=== PATIENT | male | born 1995 | race Two or more races ===

== ENCOUNTER 2018-10-05 15:22 | Emergency (ER) | payer OTHER ==
[2018-10-05 15:31] VITALS: BP 149/108; PULSE 103; TEMP 98.3; BMI 35.5
[2018-10-05] MEDS ORDERED: FLUORESCEIN NA 1 EA STRIP OS ONE (15:37)
[2018-10-05] MEDS ORDERED: TETRACAINE 0.5% HCL 0.6ML DROPPER.BOTTLE OS ONE (15:37)
[2018-10-05] MEDS ORDERED: TETRACAINE 0.5% OPHTH SOLN 2 ML BOTTLE ONE (15:39)
[2018-10-05] MEDS ORDERED: FLUORESCEIN NA 1 EA STRIP ONE (15:39)
--- NOTE | 2018-10-05 16:39 | PDOC ---
Documentation entered by Carter Benson SCRIBE, acting as scribe for Omid Robb MD. Omid Robb MD: This documentation has been prepared by the [place] [employer], SCRIBE, under my direction and personally reviewed by me in its entirety. I confirm that the documentation accurately reflects all work, treatment, procedures, and medical decision making performed by me. History of Present Illness - General Chief Complaint: Eye Problem Stated Complaint: LEFT EYE REDNESS Time Seen by Provider: 10/05/18 15:23 History Source: Patient Exam Limitations: No Limitations - History of Present Illness Initial Comments: 10/05/18 15:52 The patient is a 23 year old male with no significant past medical history who presents to the ED with pink colored eye for 2 days. Patient states his left eye became pink two days ago. He states his left eye is itchy, watery, and painful with movement. He also reports a subjective fever, sore throat, and generalized weakness earlier today associated with present symptoms. Patient states he took clean and clear eye drops with no relief of present symptoms. Denies visual changes. Denies any other symptoms. Social hx: The patient works at a [employer]. Past History - Past Medical History Allergies/Adverse Reactions: Allergies Allergy/AdvReac Type Severity Reaction Status Date / Time No Known Allergies Allergy Verified 10/05/18 15:24 Home Medications: Ambulatory Orders Sulfacetamide Sodium 10% [Bleph-10 Ophthalmic Solution -] 1 drop OS Q2H #1 bottle 10/05/18 - Immunization History Immunization Up to Date: Yes - Suicide/Smoking/Psychosocial Hx Smoking History: Never smoked Hx Alcohol Use: No Drug/Substance Use Hx: No Substance Use Type: None Review of Systems - Review of Systems Able to Perform ROS?: Yes Comments:: 10/05/18 15:52 CONSTITUTIONAL: + subjective fever + generalized weakness. EYES: + pink colored eye Absent: visual changes ENT: + sore throat Absent: ear pain CARDIOVASCULAR: Absent: chest pain, no palpitations RESPIRATORY: Absent: cough, no SOB GI: Absent: abdominal pain, no nausea, no vomiting, no constipation, no diarrhea GENITOURINARY: Absent: dysuria, no frequency, no hematuria MUSKULOSKELETAL: Absent: back pain, no arthralgia, no myalgia SKIN: Absent: rash NEURO: Absent: headache All Other Systems: Reviewed and Negative *Physical Exam - Vital Signs Last Vital Signs Temp Pulse Resp BP Pulse Ox 98.3 F 103 H 20 149/108 H 99 10/05/18 15:23 10/05/18 15:23 10/05/18 15:23 10/05/18 15:23 10/05/18 15:23 - Physical Exam Comments: 10/05/18 15:53 GENERAL: Well-appearing, well-nourished. No apparent distress. HEENT: + Pupil is 4 mm. PERRLA. Conjunctival injection moderate to severe but no ciliary flush. The anterior chamber is clear. The cornea is clear and does not sting with fluorescence. There is no foreign body visible. Extraoccular movements are full and visual feilds are intact. Visual field is 20/20. Normocephalic, atraumatic. CARDIOVASCULAR: Normal S1, S2. Regular rate and rhythm. PULMONARY: Clear to auscultation bilaterally. ABDOMEN: Soft, non-distended, non-tender. EXTREMITIES: Normal ROM in all four extremities. No gross deformities. SKIN: Warm, dry. No rash NEUROLOGICAL: No focal neurological deficits. ED Treatment Course - Medications Given in the ED: ED Medications Discontinued Medications Generic Name Dose Route Start Last Admin Trade Name Brian PRN Reason Stop Dose Admin Fluorescein Sodium 1 ea 10/05/18 15:37 10/05/18 15:39 Fluorets - OS 10/05/18 15:38 1 ea ONCE ONE Administration Tetracaine HCl 1 drop 10/05/18 15:37 10/05/18 15:40 Tetravisc 0.5% Eye Drops - OS 10/05/18 15:38 1 drop ONCE ONE Administration Medical Decision Making - Medical Decision Making 10/05/18 16:57 Examination of the eye reveals signs of viral conjunctivitis. There is no ciliary flush, the cornea and anterior chamber clear, no foreign bodies visualized. The patient has signs of a URI as well. Visual acuity is 20/20 Symptomatic treatment and follow-up with cut filer if no improvement. Fully ambulatory in no pain or other distress at discharge 10/05/18 16:59 His blood pressure has been elevated numerous times in the past, and he is strongly encouraged to consult his primary physician and seek better blood pressure control to avoid subsequent medical problems. He seems to understand and agree. *DC/Admit/Observation/Transfer Diagnosis at time of Disposition: Conjunctivitis Qualifiers: Conjunctivitis type: acute Acute conjunctivitis type: unspecified Laterality: left Qualified Code(s): H10.32 - Unspecified acute conjunctivitis, left eye - Discharge Dispostion Disposition: HOME Condition at time of disposition: Stable Decision to Admit order: No - Prescriptions Prescriptions: Sulfacetamide Sodium 10% [Bleph-10 Ophthalmic Solution -] 1 drop OS Q2H #1 bottle - Referrals Referrals: Merlin Whittaker MD [Staff Physician] - 3 days - Patient Instructions Printed Discharge Instructions: DI for Conjunctivitis Additional Instructions: Warm compresses, antibiotic drops as directed. Tylenol or Motrin See eye doctor if no improvement 3-5 days as directed. - Post Discharge Activity Forms/Work/School Notes: Back to Work
== END 2018-10-05 16:30 | disposition home or self-care (01) ==
LOC: FER 15:22
DX: H10.32 Unspecified acute conjunctivitis, left eye (principal)
CPT/HCPCS: 99281-25

== ENCOUNTER 2018-10-19 20:39 | Emergency (ER) | payer OTHER | END 2018-10-19 21:17 | disposition home or self-care (01) | LOC: FER 20:39 ==

== ENCOUNTER 2019-05-30 21:46 | Emergency (ER) | payer OTHER ==
[2019-05-30 21:56] VITALS: BP 156/102; PULSE 128; TEMP 100.9; BMI 36.9
[2019-05-30] MEDS ORDERED: IBUPROFEN 400 MG TABLET (FP) PO ONE ×2 (21:56→21:59)
[2019-05-30] MEDS ORDERED: OSELTAMIVIR PHOSPHATE 75 MG CAPSULE PO ONE (21:56)
[2019-05-30] MEDS ORDERED: OSELTAMIVIR PHOSPHATE 75 MG CAPSULE ONE (21:59)
[2019-05-30] MEDS ORDERED: ONDANSETRON *ODT* 4 MG TABLET SL ONE (22:00)
[2019-05-30] MEDS ORDERED: ONDANSETRON *ODT* 4 MG TABLET ONE (22:01)
--- NOTE | 2019-05-30 22:04 | PDOC ---
History of Present Illness - General Chief Complaint: Respiratory Stated Complaint: FLU LIKE ILLNESS Time Seen by Provider: 05/30/19 21:55 History Source: Patient Exam Limitations: No Limitations - History of Present Illness Initial Comments: 05/30/19 22:04 This is a 23-year-old male who comes in with his significant other complaining of acute onset x1 day headache, body aches, fever, cough and a flulike symptoms. Patient's significant other is currently getting over the flu. Allergies: as per nursing notes Past Medical History: none Social history: Lives with family. No smoking. No alcohol. No illicit drugs. Surgical history: None General: No fevers or chills, no weakness, no weight loss HEENT: No change in vision. No sore throat,. No ear pain CardioVascular: no chest discomfort. No shortness of breath Respiratory:No cough, or wheezing. Gastrointestinal: no nausea, vomiting, diarrhea or constipation, No rectal bleeding Genitourinary: No dysuria, hematuria, or frequency Musculoskeletal: No joint or muscle pain or swelling Neurologic: No headache, vertigo, dizziness or loss of consciousness Psychiatric: nor depression Skin: No rashes or easy bruising Endocrine: no increased thirst or abnormal weight change Allergic: no skin or latex allergy All other systems reviewed and normal Exam: General: Well-nourished well-developed individual, no acute distress HEENT: Throat: Normal, tonsils normal, no erythema or exudate Neck: Supple, no meningeal signs, no lymphadenopathy Eyes::Pupils equal reactive and round, extraocular motion intact Chest: Nontender to palpation Cardiac: S1-S2 normal, regular rate and rhythm, no murmurs rubs or gallops Respiratory: Lungs clear to auscultation bilateral Abdomen: Soft, nondistended, normal bowel sounds, there is no tenderness on palpation diffusely Extremities: Warm, dry, no cyanosis, clubbing, or edema Skin: No rashes Neuro: Alert and oriented x3, CN II - XII intact, nonfocal exam with normal strength, normal sensation, normal reflexes, normal gait, Psych: Normal mood and affect Assessment and plan: This is a 23-year-old male with flulike illness and a significant other who is getting over the flu. Patient started on Tamiflu, given Motrin for the fever and some Zofran for the nausea. Patient otherwise has had no vomiting and appears well-hydrated. Patient discharged we will follow-up with his primary care doctor. Patient given prescriptions for Tamiflu and Zofran. Past History - Past Medical History Allergies/Adverse Reactions: Allergies Allergy/AdvReac Type Severity Reaction Status Date / Time No Known Allergies Allergy Verified 05/30/19 21:48 Home Medications: Ambulatory Orders Ondansetron [Zofran *Odt*] 8 mg SL TID #12 od.tablet 05/30/19 Oseltamivir Phosphate [Tamiflu] 75 mg PO BID #10 capsule 05/30/19 COPD: No Other medical history: HEADACHES - Immunization History Immunization Up to Date: Yes - Psycho Social/Smoking Cessation Hx Smoking History: Never smoked Have you smoked in the past 12 months: No Hx Alcohol Use: Yes (OCCASIONAL) Drug/Substance Use Hx: No Substance Use Type: None *Physical Exam - Vital Signs Last Vital Signs Temp Pulse Resp BP Pulse Ox 100.9 F H 128 H 18 156/102 H 97 05/30/19 21:47 05/30/19 21:47 05/30/19 21:47 05/30/19 21:47 05/30/19 21:47 Discharge - Discharge Information Problems reviewed: Yes Clinical Impression/Diagnosis: Influenza-like illness Condition: Good Disposition: HOME - Admission No - Follow up/Referral - Patient Discharge Instructions Additional Instructions: Take Tamiflu 1 tablet twice a day for 5 days, Tylenol or Motrin as needed for body aches, headache or fever, Follow-up with your primary care doctor regarding your high blood pressure. Take Zofran 1 tablet as often as 3 times a day for nausea or vomiting. Return to the emergency department immediately with ANY new, persistent or worsening symptoms. Continue any medications as previously prescribed by your physician. You should follow up with your primary doctor as soon as possible regarding today's emergency department visit. . Please make sure your doctor reviews the results of your emergency evaluation. Thank you for coming to the Emergency Department today for your care. It was a pleasure to see you today. Please note that your evaluation is INCOMPLETE until you follow-up with your doctor. - Post Discharge Activity
== END 2019-05-30 22:22 | disposition home or self-care (01) ==
LOC: FER 21:46
DX: J11.1 Influenza due to unidentified influenza virus with other respiratory manifestations (principal)
CPT/HCPCS: 99281-25; Q0162

== ENCOUNTER 2019-06-05 21:25 | Emergency (ER) | payer OTHER ==
[2019-06-05 21:41] VITALS: BP 151/102; PULSE 100; TEMP 100.1; BMI 36.9
[2019-06-05] MEDS ORDERED: MAG HYDROX/AL HYDROX/SIMETH 30 ML UNIT-DOSE CUP PO ONE (22:15)
[2019-06-05] MEDS ORDERED: MAG HYDROX/AL HYDROX/SIMETH 30 ML UNIT-DOSE CUP ONE (22:17)
--- NOTE | 2019-06-06 04:51 | PDOC ---
Documentation entered by Lay Tai SCRIBE, acting as scribe for Mckenzie Bal MD. Mckenzie Bal MD: This documentation has been prepared by the [place], SCRIBE, under my direction and personally reviewed by me in its entirety. I confirm that the documentation accurately reflects all work, treatment, procedures, and medical decision making performed by me. History of Present Illness - General Chief Complaint: Pain Stated Complaint: GERD Time Seen by Provider: 06/05/19 21:27 History Source: Patient Exam Limitations: No Limitations - History of Present Illness Initial Comments: 06/05/19 21:45 The patient is a 23 year old male with a significant PMH of the flu (this week) and chronic headaches who presents to the ED for a 1 day of substernal chest pain, which comes for a few seconds every 10 minutes, especially after eating. The patient reports that the chest pain is nonradiating and is worsened by eating/drinking and alleviated by lying down. The patient reports that he was diagnosed with the Flu on Saturday (05/30/2019) and was given Tamiflu, he also reports going to a neurologist on Saturday (06/03/2019) and was put on fioricet and amitriptyline for his headaches. He also reports that yesterday he saw his general doctor who diagnosed him with a throat infection and prescribed him azithromycin (Z-Lincoln) and prednisone. His doctor also started him on pantoprazole. The patient also endorses 2 days of abdominal pain and constipation, noting that he has not had a bowel movement in 2 days and 1 episode of vomiting today. Patient also endorses being positive for strep a pharyngitis few months ago and having a subjective fever today. The patient denies dizziness. Denies diarrhea. Denies dysuria, frequency, urgency and hematuria. Allergies: NKA Social history: No reported hx of tobacco use, alcohol use or illicit drug use. PCP: Vikram , Past History - Past Medical History Allergies/Adverse Reactions: Allergies Allergy/AdvReac Type Severity Reaction Status Date / Time No Known Allergies Allergy Verified 05/30/19 21:48 Home Medications: Ambulatory Orders Ondansetron [Zofran *Odt*] 8 mg SL TID #12 od.tablet 05/30/19 Oseltamivir Phosphate [Tamiflu] 75 mg PO BID #10 capsule 05/30/19 Amitriptyline HCl [Elavil -] 10 mg PO DAILY 06/05/19 Azithromycin [Zithromax] 500 mg PO DAILY 06/05/19 Butalb/Acetaminophen/Caffeine [Kcbyjn-Ziryuvsy-Azpr 50-325-40] 1 each PO PRN PRN 06/05/19 Cetirizine HCl 10 mg PO DAILY 06/05/19 Naproxen 500 mg PO PRN PRN 06/05/19 predniSONE [Deltasone -] 10 mg PO DAILY 06/05/19 COPD: No - Immunization History Immunization Up to Date: Yes - Psycho Social/Smoking Cessation Hx Smoking History: Never smoked Have you smoked in the past 12 months: No Hx Alcohol Use: Yes (OCCASIONAL) Drug/Substance Use Hx: No Substance Use Type: None Review of Systems - Review of Systems Able to Perform ROS?: Yes Comments:: 06/05/19 22:17 GENERAL/CONSTITUTIONAL: (+)fever. No weakness. HEAD, EYES, EARS, NOSE AND THROAT: (+) Soar throat. No change in vision. No ear pain or discharge. CARDIOVASCULAR: (+) Substernal chest pain (+) Shortness of breath. RESPIRATORY: No cough, wheezing, or hemoptysis. GASTROINTESTINAL: (+) nausea (+) vomiting (+) Constipation. No diarrhea. GENITOURINARY: No dysuria, frequency, or change in urination. MUSCULOSKELETAL: No joint or muscle swelling or pain. No neck or back pain. SKIN: No rash NEUROLOGIC: (+) Headache. No vertigo, loss of consciousness, or change in strength/sensation. ENDOCRINE: No increased thirst. No abnormal weight change. HEMATOLOGIC/LYMPHATIC: No anemia, easy bleeding, or history of blood clots. ALLERGIC/IMMUNOLOGIC: No hives or skin allergy. *Physical Exam - Vital Signs Last Vital Signs Temp Pulse Resp BP Pulse Ox 100.1 F H 100 H 18 151/102 H 98 06/05/19 21:30 06/05/19 21:30 06/05/19 21:30 06/05/19 21:30 06/05/19 21:30 - Physical Exam 06/05/19 22:19 GENERAL: Awake, alert, and fully oriented, in no acute distress HEAD: No signs of trauma EYES: PERRLA, EOMI, sclera anicteric, conjunctiva clear ENT: (+) oropharynx, scattered exudates. (+) Truisms (+) Lymphadenopathy. Auricles normal inspection, hearing grossly normal, nares patent. Moist mucosa NECK: Normal ROM, supple,no JVD, or masses LUNGS: Breath sounds equal, clear to auscultation bilaterally. No wheezes, and no crackles HEART: Regular rate and rhythm, normal S1 and S2, no murmurs, rubs or gallops ABDOMEN: Soft, nontender, normoactive bowel sounds. No guarding, no rebound. No masses EXTREMITIES: Normal range of motion, no edema. No clubbing or cyanosis. No cords, erythema, or tenderness NEUROLOGICAL: Cranial nerves II through XII grossly intact. Normal speech, normal gait SKIN: Warm, Dry, normal turgor, no rashes or lesions noted. ED Treatment Course - Medications Given in the ED: ED Medications Discontinued Medications Generic Name Dose Route Start Last Admin Trade Name Freq PRN Reason Stop Dose Admin Al Hydroxide/Mg Hydroxide 30 ml 06/05/19 22:15 06/05/19 22:18 Mylanta Oral Suspension - PO 06/05/19 22:16 30 ml ONCE ONE Administration Medical Decision Making - Medical Decision Making As noted above, this 23-year-old man with a history of strep pharyngitis last year, febrile viral illness diagnosed as influenza last week (treated with Tamiflu) and chronic headache presents with intermittent mid chest pain associated with swallowing liquids or food. Pain is sharp and very brief and started yesterday. He has been started on azithromycin and prednisone by his general doctor 2 days ago for pharyngitis that he states has been present for 2 weeks. Pantoprazole was also started yesterday. Exam notable for fever to 100.2 F; patient is also tachycardic and mildly hypertensive. HEENT exam notable for erythematous pharynx with mild trismus. Patient is not drooling and there is no significant edema noted in his pharynx. There was suggestion of exudative patches however and patient had palpable anterior cervical lymphadenopathy. Remainder of the exam was unremarkable although he had mild epigastric tenderness. Because of the presence of substernal chest pain, twelve-lead electrocardiogram was performed. In preliminary interpretation by maranda sinus rhythm at 97 bpm; axis, intervals and waveforms are all normal. No evidence of acute ST or T wave abnormalities. No evidence of acute cardiac arrhythmia. Symptoms most consistent with esophagitis/GERD, likely related to multiple medications prescribed over the last several days. Although the patient has been treated with azithromycin for his pharyngitis for a few days, quick strep/ throat culture was sent. Quick strep negative; throat culture pending. Patient will be continued on his azithromycin course. Although prednisone would be helpful for his pharyngeal inflammation, in light of his newly developed GERD/esophagitis symptoms, the patient has been told to discontinue the prednisone. He had also been prescribed naproxen sometime in the last week and he should avoid taking this also. Patient was given 30 mL of antacid orally; after this, patient noted some relief in his mid chest pain. He can continue antacids as needed. He should continue the pantoprazole as prescribed by his doctor. Patient has been advised to continue hydration as best as he can. He states he will follow-up with his PMD within the next 48 to 72 hours. 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 He has been given documentation not to work until June 10. He should return to the emergency room if he has more severe pain, vomiting, persistent high fever, worsening difficulty swallowing Discharge - Discharge Information Problems reviewed: Yes Clinical Impression/Diagnosis: GERD with esophagitis Acute pharyngitis Qualifiers: Pharyngitis/tonsillitis etiology: unspecified etiology Qualified Code(s): J02.9 - Acute pharyngitis, unspecified Condition: Stable Disposition: HOME - Follow up/Referral - Patient Discharge Instructions Patient Printed Discharge Instructions: DI for Gastroesophageal Reflux Disease (GERD) Additional Instructions: Rest; elevate head on extra pillows Try to stay hydrated (small amounts of water taken frequently) Continue pantoprazole as prescribed; can use antacids ([id number]) as needed Continue azithromycin as prescribed Avoid using Motrin/naproxen (Aleve)/prednisone No work until June 10 Follow-up with your doctor within 3 to 4 days Return to ER if you have severe pain, high fever, vomiting - Post Discharge Activity Work/Back to School Note: Back to Work
--- NOTE | 2019-06-06 16:23 | EKG ---
Test Reason : Blood Pressure : / mmHG Vent. Rate : 097 BPM Atrial Rate : 097 BPM P-R Int : 136 ms QRS Dur : 100 ms QT Int : 344 ms P-R-T Axes : 025 -26 009 degrees QTc Int : 436 ms NORMAL SINUS RHYTHM NORMAL ECG NO PREVIOUS ECGS AVAILABLE Confirmed by MD CHAIM, RAFAEL ([id number]) on 06/06/2019 4:22:32 PM Referred By: MD SLADE Confirmed By:RAFAEL RUCKER MD
== END 2019-06-05 23:16 | disposition home or self-care (01) ==
LOC: FER 21:25
DX: J02.9 Acute pharyngitis, unspecified (principal); K21.9 Gastro-esophageal reflux disease without esophagitis
CPT/HCPCS: 87070; 87880; 93005; 99282-25

== ENCOUNTER 2020-06-07 12:15 | Emergency (ER) | payer OTHER ==
[2020-06-07 12:24] VITALS: TEMP 97.9; BMI 37.1
[2020-06-07] MEDS ORDERED: IBUPROFEN 600 MG TABLET (FP) PO ONE ×2 (12:50→13:01)
[2020-06-07 13:25] VITALS: BP 153/98; PULSE 87
== END 2020-06-07 14:00 | disposition home or self-care (01) ==
LOC: FER 12:15
DX: M25.551 Pain in right hip (principal); M25.511 Pain in right shoulder
CPT/HCPCS: 73030-TC-RT-FY; 73523-TC-FY; 73610-TC-RT-FY; 73630-TC-RT-FY; 99285-25

== ENCOUNTER 2020-10-21 20:40 | Emergency (ER) | payer OTHER ==
[2020-10-21 20:49] VITALS: BP 142/88; PULSE 95; TEMP 98; BMI 36.3
[2020-10-21] MEDS ORDERED: KETOROLAC TROMETHAMINE 60 MG/2 ML VIAL IM ONE (20:51)
[2020-10-21] MEDS ORDERED: ALPRAZolam 1 MG TABLET PO PRN (20:51)
[2020-10-21] MEDS ORDERED: ALPRAZolam 0.25 MG TABLET ONE (20:54)
[2020-10-21] MEDS ORDERED: KETOROLAC TROMETHAMINE 60 MG/2 ML VIAL ONE (20:54)
[2020-10-21] MEDS ORDERED: ONDANSETRON *ODT* 4 MG TABLET SL ONE (20:55)
[2020-10-21] MEDS ORDERED: ONDANSETRON *ODT* 4 MG TABLET ONE (21:00)
== END 2020-10-21 21:40 | disposition home or self-care (01) ==
LOC: FER 20:40
PROC: 3E0233Z Introduction of Anti-inflammatory into Muscle, Percutaneous Approach (ICD-10-PCS; principal; 2020-10-21)
DX: G43.909 Migraine, unspecified, not intractable, without status migrainosus (principal); F41.9 Anxiety disorder, unspecified
CPT/HCPCS: 99284-25; Q0162

== ENCOUNTER 2021-03-25 09:02 | Emergency (ER) | payer OTHER ==
[2021-03-25 09:06] VITALS: BP 139/98; PULSE 72; TEMP 98.1; BMI 37.1
== END 2021-03-25 09:35 | disposition home or self-care (01) ==
LOC: FER 09:02
DX: M25.511 Pain in right shoulder (principal); G89.29 Other chronic pain
CPT/HCPCS: 99281-25

== ENCOUNTER 2021-09-06 15:39 | Emergency (ER) | payer OTHER ==
[2021-09-06 16:21] VITALS: BP 158/99; PULSE 80; TEMP 99; BMI 37.1
== END 2021-09-06 16:38 | disposition home or self-care (01) ==
LOC: FER 15:39
DX: R29.810 Facial weakness (principal); G51.0 Bell's palsy
CPT/HCPCS: 99281-25

== ENCOUNTER 2022-06-17 22:06 | Emergency (ER) | payer OTHER ==
[2022-06-17 22:11] VITALS: BP 147/103; PULSE 99; RESP 18; TEMP 97.9; BMI 36.0
[2022-06-17] MEDS ORDERED: NAPROXEN 500 MG TABLET PO ONE (22:25)
[2022-06-17] MEDS ORDERED: NAPROXEN 500 MG TABLET ONE (22:25)
[2022-06-17 22:44] LABS: BILIRUBIN,TOTAL 0.9 mg/dl (0.2-1); CALCIUM 8.3 mg/dl (8.5-10); TOT PROT 7.2 g/dl (6.4-8.2); URIC ACID 9.9 mg/dl (2.6-7.2)
[2022-06-17] MEDS ORDERED: COLCHICINE 0.6 MG CAP PO ONE (22:57)
[2022-06-17] MEDS ORDERED: COLCHICINE 0.6 MG TAB ONE (23:00)
== END 2022-06-17 23:11 | disposition home or self-care (01) ==
LOC: FER 22:06
DX: M10.9 Gout, unspecified (principal)
CPT/HCPCS: 36415; 73660-TC-LT-FY; 80053; 84550; 99284-25

== ENCOUNTER 2022-07-25 16:02 | Emergency (ER) | payer OTHER ==
[2022-07-25 16:24] VITALS: BP 142/109; PULSE 83; RESP 18; TEMP 97.8; BMI 35.5
[2022-07-25] MEDS ORDERED: METOCLOPRAMIDE HCL INJECTION 10 MG/2 ML VIAL IVPB ONE (16:38)
[2022-07-25] MEDS ORDERED: SODIUM CHLORIDE 1,000 ML IV STA (16:38)
[2022-07-25] MEDS ORDERED: ACETAMINOPHEN 1000 MG/100 ML BAG IVPB ONE (16:38)
[2022-07-25] MEDS ORDERED: ACETAMINOPHEN INJECTION 100 ML IVPB ONE (16:49)
[2022-07-25] MEDS ORDERED: METOCLOPRAMIDE HCL INJECTION 10 MG/2 ML VIAL ONE (16:49)
[2022-07-25 17:19] LABS: HEMATOCRIT 47.1 % (35.4-49); HEMOGLOBIN 15.8 G/dL (11.7-16.9); MCH 30.5 pg (25.7-33.7); MCHC 33.6 g/dl (32.0-35.9); MEAN CELL VOLUME 90.7 fl (80-96); MEAN PLT VOLUME 7.1 fl (7.5-11.1); PLATELET COUNT 329.3 10^3/uL (134-434); RBC 5.19 10^6/uL (4.00-5.60); RDW 13.1 % (11.9-15.9); WHITE BLOOD COUNT 9.7 10^3/uL (4.0-10.8)
[2022-07-25 17:35] LABS: ALBUMIN 4.3 g/dl (3.4-5.0); BILIRUBIN,TOTAL 1.2 mg/dl (0.2-1); CALCIUM 8.7 mg/dl (8.5-10); CREATININE 1.1 mg/dl (0.55-1.3); TOT PROT 7.7 g/dl (6.4-8.2)
[2022-07-25 17:43] LABS: PLATELET ESTIMATE ADEQUATE
== END 2022-07-25 18:15 | disposition home or self-care (01) ==
LOC: FER 16:02
PROC: 3E033NZ Introduction of Analgesics, Hypnotics, Sedatives into Peripheral Vein, Percutaneous Approach (ICD-10-PCS; principal; 2022-07-25)
PROC: 3E033GC Introduction of Other Therapeutic Substance into Peripheral Vein, Percutaneous Approach (ICD-10-PCS; 2022-07-25)
PROC: 3E0337Z Introduction of Electrolytic and Water Balance Substance into Peripheral Vein, Percutaneous Approach (ICD-10-PCS; 2022-07-25)
DX: R51.9 Headache, unspecified (principal); R11.2 Nausea with vomiting, unspecified
CPT/HCPCS: 36415; 80053; 85027; 99284-25

== ENCOUNTER 2022-11-14 22:44 | Emergency (ER) | payer OTHER ==
[2022-11-14 22:53] VITALS: RESP 17; BMI 34.4
[2022-11-15] MEDS ORDERED: KETOROLAC TROMETHAMINE 30 MG/1 ML VIAL IVPUSH ONE (01:02)
[2022-11-15] MEDS ORDERED: SODIUM CHLORIDE 1,000 ML IV STA (01:02)
[2022-11-15] MEDS ORDERED: KETOROLAC TROMETHAMINE 30 MG/1 ML VIAL ONE (01:34)
[2022-11-15 01:57] LABS: BASO % 0.3 % (0-2.0); EOS % 4.3 % (0-4.5); HEMATOCRIT 44.1 % (35.4-49); HEMOGLOBIN 15.1 GM/dL (11.7-16.9); LYMPH % 34.1 % (8-40); MCH 30.8 pg (25.7-33.7); MCHC 34.3 g/dl (32.0-35.9); MEAN CELL VOLUME 89.9 fl (80-96); MEAN PLT VOLUME 6.9 fl (7.5-11.1); MONO % 8.6 % (3.8-10.2); NEUT % 52.7 % (42.8-82.8); PLATELET COUNT 340 10^3/uL (134-434); RBC 4.91 M/mm3 (4.00-5.60); RDW 12.9 % (11.9-15.9); WHITE BLOOD COUNT 7.8 K/mm3 (4.0-10.0)
[2022-11-15 02:04] LABS: URINE APPEARANCE CLEAR; URINE BILIRUBIN NEGATIVE (NEGATIVE); URINE COLOR YELLOW; URINE GLUCOSE (UA) NEGATIVE (NEGATIVE); URINE KETONE NEGATIVE (NEGATIVE); URINE LEUK ESTERASE NEGATIVE (NEGATIVE); URINE NITRITE NEGATIVE (NEGATIVE); URINE PROTEIN NEGATIVE (NEGATIVE); URINE UROBILINOGEN 0.2 mg/dL (0.2-1.0)
[2022-11-15 02:21] LABS: POTASSIUM 4.1 mmol/L (3.5-5.1)
[2022-11-15 02:23] LABS: ALBUMIN 3.9 g/dl (3.4-5.0); BLOOD UREA NITROGEN 17.2 mg/dL (7-18); CALCIUM 9.1 mg/dL (8.5-10.1)
[2022-11-15 02:26] LABS: CREATININE 1.1 mg/dL (0.55-1.3)
[2022-11-15 02:28] LABS: TOT PROT 7.5 g/dl (6.4-8.2)
[2022-11-15 02:34] LABS: BILIRUBIN,TOTAL 0.7 mg/dL (0.2-1)
[2022-11-15 03:24] VITALS: BP 140/75; PULSE 75; TEMP 98.3
== END 2022-11-15 03:52 | disposition home or self-care (01) ==
LOC: FER 22:44
PROC: 3E0333Z Introduction of Anti-inflammatory into Peripheral Vein, Percutaneous Approach (ICD-10-PCS; principal; 2022-11-15)
PROC: 3E0337Z Introduction of Electrolytic and Water Balance Substance into Peripheral Vein, Percutaneous Approach (ICD-10-PCS; 2022-11-15)
DX: R10.9 Unspecified abdominal pain (principal); R11.0 Nausea; K59.00 Constipation, unspecified
CPT/HCPCS: 36415; 74176-TC; 80053; 81003; 85025; 99284-25